=== PATIENT | male | born 1985 | race Caucasian/White ===

== ENCOUNTER 2021-01-13 12:36 | Emergency (ER) | payer SELFPAY ==
[~2021-01-13] VITALS: Ht 177.8 cm; Wt 74.8 kg
--- NOTE | 2021-01-13 13:00 | NUR ---
pt presents to ed w/ R hand laceration while sharpening a knife, approx 6cm laceration noted. pt not sure if UTD to tetanus shot. stable vitals. nad noted. awaiting md bermudez.
[2021-01-13] MEDS ORDERED: LIDOCAINE 1%-EPI 1:100,000 20 ML VIAL ONE (14:44)
[2021-01-13] MEDS ORDERED: LIDOCAINE 1%-EPI 1:100,000 50 ML VIAL IJ ONE (15:00)
[2021-01-13] MEDS ORDERED: TDAP [DIPH/PERTUSSIS/TET] 0.5 ML VIAL IM ONE ×2 (15:12→15:30)
--- NOTE | 2021-01-13 16:01 | NUR ---
dr griffiths at bedside for lac repair.
[2021-01-13] MEDS ORDERED: CEPH250C PO (16:17)
[2021-01-13] MEDS ORDERED: IBUP-1955 PO (16:18)
[2021-01-13] MEDS ORDERED: NEOM28.37 TP (16:18)
--- NOTE | 2021-01-13 16:26 | NUR ---
lac repair done, pt tolerated procedure well. 6 sutures noted. pt provided w/ wound care.
[2021-01-13] MEDS ORDERED: BACITRACIN ZINC OINT PACKET 1 EA PACKET TP ONE (16:30)
--- NOTE | 2021-01-13 16:30 | NUR ---
Patient discharged to home in stable condition. Written and verbal after care instructions given. Patient verbalizes understanding of instruction.
[2021-01-13 16:31] VITALS: BP 129/88
== END 2021-01-13 16:31 | disposition home or self-care (01) ==
LOC: ER 12:54
DX: S61.411A Laceration without foreign body of right hand, initial encounter (principal); Z79.899 Other long term (current) drug therapy; W26.0XXA Contact with knife, initial encounter; Y93.89 Activity, other specified; Y92.89 Other specified places as the place of occurrence of the external cause; Y99.8 Other external cause status
CPT/HCPCS: 12002; 90471; 90715; 99283; J3490 ×2

== ENCOUNTER 2021-01-16 17:44 | Emergency (ER) | payer SELFPAY ==
[~2021-01-16] VITALS: Ht 175.3 cm; Wt 65.8 kg
[~2021-01-16 17:44] MED LIST: CEPH250C PO; IBUP-1955 PO; NEOM28.37 TP
[2021-01-16 17:58] VITALS: BP 121/81
== END 2021-01-16 18:09 | disposition home or self-care (01) ==
LOC: ER 17:46
DX: S61.411D Laceration without foreign body of right hand, subsequent encounter (principal); Z79.899 Other long term (current) drug therapy; W26.8XXD Contact with other sharp object(s), not elsewhere classified, subsequent encounter

== ENCOUNTER 2021-01-25 18:07 | Emergency (ER) | payer SELFPAY ==
[~2021-01-25] VITALS: Ht 177.8 cm; Wt 79.4 kg
[2021-01-25 18:15] VITALS: BP 125/85
--- NOTE | 2021-01-25 18:15 | NUR ---
BIB SELF FOR SUTURE REMOVAL FROM RIGHT HAND. NO S/S INFECTION NOTED. WILL CONTINUE TO MONITOR THE PATIENT.
--- NOTE | 2021-01-25 18:53 | NUR ---
Patient discharged to home in stable condition. Written and verbal after care instructions given. Patient verbalizes understanding of instruction.
== END 2021-01-25 18:53 | disposition home or self-care (01) ==
LOC: ER 18:09
DX: S61.411D Laceration without foreign body of right hand, subsequent encounter (principal); X58.XXXD Exposure to other specified factors, subsequent encounter